=== PATIENT | female | born 1980 | race Caucasian/White ===

== ENCOUNTER → 2018-08-05 | Day surgery (SDC) | payer OTHER ==
[~2018-08-05] MED LIST: ACETAMINOPHEN 1000 MG/100 ML 100 ML IV ONE; ADDERALL 12.512.5 MG PO; BUPIVACAINE HCL 0.5% 10ML MPF VIAL INJ ONE; CEFAZOLIN SOD 1 GM VIAL IV ONE; DEXAMETHASONE SOD PHOS INJ 4 MG/ML VIAL IV ONE; DEXAMETHASONE SOD PHOS INJ 4 MG/ML VIAL ONE; EPHEDRINE SULFATE INJ 50 MG/10 ML SYR IV ONE; FENTANYL CITRATE/PF 100MCG/2 ML INJ ONE; GABAPENTIN300 MG PO; LIDOCAINE HCL 2% LOCAL INJ 5 ML SDV VIAL INJ ONE; MIDAZOLAM HCL 2 MG/2 ML VIAL ONE; MORPHINE SULFAT30 M2 PO; MORPHINE SULFATE 2 MG/ML SYR ONE; NEOSTIGMINE 1 MG/ML 10ML VIAL ONE; ONDANSETRON HCL INJ 2 MG/ML VIAL IV ONE; PROPOFOL IV EMULSION 10 MG/ML 20 ML VIAL IV ONE; SEVOFLURANE INHAL SOLN 250 ML PEN BTL INH ONE; ULTRAM 50MG50 MG PO
[2018-08-05 08:34] LABS: BASOPHILS # (AUTO) 0.1 (0.0-0.1); BASOPHILS % 1.1 % (0.0-1.0); EOSINOPHILS # (AUTO) 0.3 (0.0-0.4); EOSINOPHILS % 5.3 % (0.0-6.0); HEMATOCRIT 43.9 % (34.2-44.1); HEMOGLOBIN 14.6 g/dL (12.0-16.0); LYMPHOCYTES # (AUTO) 2.2 (1.0-3.2); LYMPHOCYTES % 34.7 % (18.0-39.1); MEAN CORPUSCULAR HEMOGLOBIN 32.1 pg (28-32); MEAN CORPUSCULAR HGB CONC 33.3 g/dL (31-35); MEAN CORPUSCULAR VOLUME 96.5 fL (81-99); MONOCYTES # (AUTO) 0.6 (0.2-0.8); NEUTROPHILS # (AUTO) 3.1 (2.1-6.9); NEUTROPHILS % 49.7 % (38.7-80.0); PLATELET COUNT 125 x10e3/uL (140-360); RED BLOOD COUNT 4.55 x10e6/uL (3.6-5.1); RED CELL DISTRIBUTION WIDTH 12.8 % (11.7-14.4)
[2018-08-05 08:49] LABS: ANION GAP 15.9 mmol/L (8-16); BLOOD UREA NITROGEN 5 mg/dL (7-26); BUN/CREATININE RATIO 8 (6-25); CALCIUM 9.2 mg/dL (8.4-10.2); CARBON DIOXIDE 25 mmol/L (22-29); CHLORIDE 100 mmol/L (98-107); CREATININE, SERUM 0.65 mg/dL (0.57-1.11); EST GLOMERULAR FILTRATION RATE > 60 ML/MIN (60-); GLUCOSE 115 mg/dL (74-118); POTASSIUM 3.9 mmol/L (3.5-5.1); SODIUM 137 mmol/L (136-145)
--- NOTE | 2018-08-05 09:57 | Diagnostic Imaging Report ---
PROCEDURE: Frontal and lateral views of the chest. COMPARISON: None. INDICATIONS: PREOPERATIVE CHEST XRAY FOR FOOT SURGERY FINDINGS: Lines/tubes: A line is seen projecting over the mediastinum and extending into the upper abdomen. This is not seen on frontal radiograph, and may be overlying the patient. Lungs: The lungs are well inflated and clear. There is no evidence of pneumonia or pulmonary edema. Pleura: There is no pleural effusion or pneumothorax. Heart and mediastinum: The cardiomediastinal silhouette is unremarkable. Bones: No acute bony abnormality. IMPRESSION: No acute cardiopulmonary disease. Dictated by: LAVINIA COELLO M.D. on 08/05/2018 at 10:03 Electronically approved by: LAVINIA COELLO M.D. on 08/05/2018 at 10:03
[2018-08-05 11:00] VITALS: BP 120/87
--- NOTE | 2018-08-05 12:32 | Operative Report ---
DATE OF PROCEDURE: August 05, 2018 PREOPERATIVE DIAGNOSIS: Nonhealing fracture 5th metatarsal midshaft left foot. POSTOPERATIVE DIAGNOSES: Nonhealing fracture 5th metatarsal midshaft left foot. TITLE OF OPERATION: Closed reduction with percutaneous pinning left foot. ANESTHESIA: General endotracheal. HEMOSTASIS: None used. PROCEDURE IN DETAIL: The patient was taken to the operating room in a mildly sedated state and placed upon the operating table in supine position. Following induction of general anesthetic, the left foot was prepped and draped in the usual aseptic manner utilizing Betadine prep, placed upon the operating table prior to performing the following procedure. Procedure number 1 is the percutaneous pinning with closed reduction of the left foot under fluoroscopy. A reduction of the midshaft fracture of the 5th metatarsal was performed. A pin lagging the transverse oblique fracture from dorsal proximal to distal medial was introduced, crossing the fracture site and adequately reducing the fracture fragments. A second pin was placed from distal lateral to proximal dorsal, entering the 5th metatarsal base and cuneiform joint for further stability. A 3rd pin realigned the dorsal plantar orientation from dorsal distal to plantar proximal. This was all done under fluoroscopy, and excellent reduction of the nonhealing fracture was achieved. The foot was washed and pins irrigated and ointment applied. A nonadhesive Adaptic with the appropriate mildly compressive dressings was then applied, pin covers after cutting the pins to the appropriate lengths and bending appropriately. No tourniquet had been used. Jose bandage applied. The patient is to stay in the [facility], return to see me within 1 week postoperatively. Job#: [id number]
== END | disposition home or self-care (01) ==
LOC: OR 07:30
PROVIDERS: ATTEND Podiatrist Foot Surgery
DX: S92.352A Displaced fracture of fifth metatarsal bone, left foot, initial encounter for closed fracture (principal); D64.9 Anemia, unspecified; G62.9 Polyneuropathy, unspecified; F90.9 Attention-deficit hyperactivity disorder, unspecified type; F17.210 Nicotine dependence, cigarettes, uncomplicated; X58.XXXA Exposure to other specified factors, initial encounter
CPT/HCPCS: 28476; 36415; 71046; 76000; 80048; 81025; 85025; 93005; J0690; J1100; J2001; J2250; J2270; J2405; J2710